=== PATIENT | female | born 1965 | race Caucasian/White ===

== ENCOUNTER 2019-12-15 19:34 | Emergency (ER) | payer BC ==
[~2019-12-15] VITALS: Ht 172.7 cm; Wt 108.9 kg
[~2019-12-15 19:34] MED LIST: AMIT25; CRUTCH3 USE; ESOM20 PO; FAMO20; GLUCHON; HYDACE5 PO; HYOS.125; HYOS0.375T PO; IBUP800 PO; KETO10 PO; LYRICA; META800; NAPR500 PO; OMEP20ER PO; OXYACE5T PO; PROACE100; Percocet 5-3251 EACH PO; ROSU10TA; SIMV40 PO; SUCR1 PO; [UNRECOGNIZED DRUG - OTHER]; [UNRECOGNIZED DRUG - REMARK]
== END 2019-12-15 21:15 | disposition left against medical advice (07) ==
LOC: ER 19:34
DX: Z53.21 Procedure and treatment not carried out due to patient leaving prior to being seen by health care provider (principal)

== ENCOUNTER → 2020-10-29 | Outpatient (CLI) | payer BC ==
[~2020-10-29] MED LIST changes: +ESTRADIOL-NORE1 EAC1 PO; +LEVOCETIRIZINE D5 MG PO; +LINZESS145 MCG PO; +PREG100 PO; +ZANAFLEX4 MG PO
== END | disposition home or self-care (01) ==
LOC: LAB SHORT 14:56
DX: R10.32 Left lower quadrant pain (principal)
CPT/HCPCS: 82565

== ENCOUNTER → 2022-08-12 | Outpatient (CLI) | payer BC ==
[2022-08-12 18:17] LABS: U Amphetamine Screen Not Detected; U Barbituate Screen Not Detected; U Benzodiazapine Screen Not Detected; U Buprenorphine Screen Not Detected; U Cannabinoids Screen Not Detected; U Cocaine Screen Not Detected; U Methadone Screen Not Detected; U Methamphetamine Screen Not Detected; U Opiates Screen DETECTED; U Oxycodone Screen Not Detected; U Phencyclidine Screen Not Detected; U Propoxyphene Screen Not Detected
== END | disposition home or self-care (01) ==
LOC: LAB SHORT 10:09
PROVIDERS: Internal Medicine Hematology & Oncology
DX: Z51.81 Encounter for therapeutic drug level monitoring (principal); Z79.899 Other long term (current) drug therapy

== ENCOUNTER → 2024-01-10 | Outpatient (CLI) | payer BC | END | disposition home or self-care (01) | LOC: LAB 18:02 → LAB SHORT 18:02 | DX: N90.89 Other specified noninflammatory disorders of vulva and perineum (principal) | CPT/HCPCS: 87252 ==

== ENCOUNTER 2024-03-14 18:46 | Emergency (ER) | payer BC ==
[~2024-03-14] VITALS: Ht 175.3 cm; Wt 101.2 kg
[2024-03-14 18:55] VITALS: BP 125/80
[2024-03-14] MEDS ORDERED: Ketorolac Tromethamine 15mg Vial IM ONE (20:45)
[2024-03-14] MEDS ORDERED: DiphenhydrAMINE HCl 50 MG Cap PO ONE (20:45)
== END 2024-03-14 20:51 | disposition home or self-care (01) ==
LOC: ER 18:46
DX: S06.0X0A Concussion without loss of consciousness, initial encounter (principal); S00.411A Abrasion of right ear, initial encounter; W20.8XXA Other cause of strike by thrown, projected or falling object, initial encounter; Z79.899 Other long term (current) drug therapy; Z88.8 Allergy status to other drugs, medicaments and biological substances
CPT/HCPCS: 70450; 96372; 99283-25; A9270; J1885

== ENCOUNTER → 2024-07-04 | Outpatient (CLI) | payer BC ==
[2024-07-04 15:51] LABS: U Amphetamine Screen Not Detected; U Barbituate Screen Not Detected; U Benzodiazapine Screen Not Detected; U Buprenorphine Screen Not Detected; U Cannabinoids Screen Not Detected; U Cocaine Screen Not Detected; U Methadone Screen Not Detected; U Methamphetamine Screen Not Detected; U Opiates Screen DETECTED; U Oxycodone Screen Not Detected; U Phencyclidine Screen Not Detected
== END | disposition home or self-care (01) ==
LOC: LAB SHORT 11:40 → LAB 11:40
PROVIDERS: Internal Medicine Hematology & Oncology
DX: Z51.81 Encounter for therapeutic drug level monitoring (principal); Z79.899 Other long term (current) drug therapy

== ENCOUNTER 2024-12-05 21:32 | Emergency (ER) | payer BC ==
[~2024-12-05] VITALS: Ht 175.3 cm; Wt 108.0 kg
[2024-12-05 21:46] VITALS: BP 116/81
[2024-12-05] MEDS ORDERED: Ketorolac Tromethamine 15mg Vial IM ONE (21:50)
== END 2024-12-05 21:58 | disposition home or self-care (01) ==
LOC: ER 21:32
DX: M54.31 Sciatica, right side (principal); Z88.8 Allergy status to other drugs, medicaments and biological substances; Z79.899 Other long term (current) drug therapy
CPT/HCPCS: 96372; 99283-25; J1885

== ENCOUNTER 2025-04-02 16:24 | Emergency (ER) | payer BC ==
[~2025-04-02] VITALS: Ht 175.3 cm; Wt 105.2 kg
[2025-04-02] MEDS ORDERED: HYDROmorphone HCl/Pf 1MG SYR IV PRN (16:50)
[2025-04-02] MEDS ORDERED: OXAYDO5 M1 PO (19:32)
[2025-04-02] MEDS ORDERED: ONDA4ODT MM (19:32)
[2025-04-02] MEDS ORDERED: POLY500 PO (19:32)
[2025-04-02] MEDS ORDERED: SENNA LAXATIVE8.6 MG PO (19:32)
[2025-04-02] MEDS ORDERED: CODACE30 PO (19:32)
[2025-04-02 20:00] VITALS: BP 110/91
== END 2025-04-02 20:29 | disposition home or self-care (01) ==
LOC: ER 16:24
DX: S82.142A Displaced bicondylar fracture of left tibia, initial encounter for closed fracture (principal); I10 Essential (primary) hypertension; J44.9 Chronic obstructive pulmonary disease, unspecified; W18.30XA Fall on same level, unspecified, initial encounter; Z79.899 Other long term (current) drug therapy; Z88.8 Allergy status to other drugs, medicaments and biological substances; Z87.891 Personal history of nicotine dependence
CPT/HCPCS: 73502; 73562-LT; 73590; 73700; 76377; 96374; 96376; 99284-25; A6590; J1171

== ENCOUNTER 2025-04-10 12:14 | Inpatient (IN) | payer BC ==
[~2025-04-10] VITALS: Ht 175.3 cm; Wt 73.8 kg
[~2025-04-10 12:14] MED LIST changes: +CODACE30 PO; +ONDA4ODT MM; +OXAYDO5 M1 PO; +POLY500 PO; +SENNA LAXATIVE8.6 MG PO
[2025-04-10] MEDS ORDERED: NS 1,000 ML IV SCH ×3 (12:55→21:00)
[2025-04-10] MEDS ORDERED: Ketorolac Tromethamine 30mg Vial IV ONE (13:15)
[2025-04-10 14:21] LABS: BASOPHILS ABSOLUTE AUTO 0.07 K/mm3 (0.00-0.23); BASOPHILS PERCENT AUTO 1 % (0-2); EOSINOPHILS ABSOLUTE AUTO 0.13 K/mm3 (0.00-0.68); EOSINOPHILS PERCENT AUTO 1 % (0-6); Hematocrit 42.6 % (33.0-51.0); Hemoglobin 14.1 g/dL (11.5-16.0); IMMATURE GRAN ABSOLUTE AUTO 0.21 K/mm3 (0.00-0.10); IMMATURE GRAN PERCENT AUTO 2 % (0-1); LYMPHOCYTES ABSOLUTE AUTO 1.18 K/mm3 (0.84-5.20); LYMPHOCYTES PERCENT AUTO 8 % (21-46); MONOCYTES ABSOLUTE AUTO 0.67 K/mm3 (0.16-1.47); MONOCYTES PERCENT AUTO 5 % (4-13); Mean Corpuscular HGB Conc 33.1 g/dL (31.5-36.5); Mean Corpuscular Volume 89 fL (80-100); NEUTROPHILS ABSOLUTE AUTO 11.98 K/mm3 (1.96-9.15); NEUTROPHILS PERCENT AUTO 84 % (41-73); NRBC ABSOLUTE 0.00 K/mm3 (0.00-0.02); NRBC Auto 0.0 /100 WBC (0.0-0.2); Platelet Count 253 K/mm3 (150-400); RDW Coefficient Variation 13.5 % (11.7-14.2); RDW Standard Deviation 44.1 fL (35.1-46.3)
[2025-04-10 14:30] LABS: Alanine Aminotransfer (ALT/SGP 22.0 U/L (12-78); Albumin, Blood 3.7 g/dL (3.4-5.0); Albumin/Globulin Ratio 0.9 (0.8-1.8); Anion Gap 9.0 mmol/L (3-11); Aspartate Aminotrans (AST/SGOT 15.0 U/L (12-37); Bilirubin, Total 1.1 mg/dL (0.1-1.0); Blood Urea Nitrogen 9.0 mg/dL (8-24); CO2, Blood 27.0 mmol/L (21-32); Calcium, Blood 8.8 mg/dL (8.5-10.1); Chloride, Blood 105.0 mmol/L (98-108); Creatinine, Blood 0.6 mg/dL (0.40-1.00); Globulin, Blood 3.9 g/dL (2.2-4.0); Glucose, Blood 132.0 mg/dL (70-99); Potassium, Blood 3.4 mmol/L (3.5-5.5); Sodium, Blood 138.0 mmol/L (136-145); Total Protein, Blood 7.6 g/dL (6.4-8.2)
[2025-04-10] MEDS ORDERED: Piperacillin/Tazobactam Sod 4.5 GM in NS 100 ML IV ONE (14:30)
[2025-04-10] MEDS ORDERED: Vancomycin HCL 2,000 MG in NS 520 ML IV ONE (14:30)
[2025-04-10] MEDS ORDERED: ESTRADIOL42.5 GM VAG (14:51)
[2025-04-10] MEDS ORDERED: LINZESS290 MCG PO (14:51)
[2025-04-10] MEDS ORDERED: SYMAX PO (14:51)
[2025-04-10] MEDS ORDERED: LOSARTAN POTASS25 M2 PO (14:51)
[2025-04-10] MEDS ORDERED: METOPROLOL SUCC25 MG PO (14:51)
[2025-04-10] MEDS ORDERED: FARXIGA10 MG PO (14:51)
[2025-04-10] MEDS ORDERED: DULO30 PO (14:52)
[2025-04-10] MEDS ORDERED: ATORVASTATIN CA20 MG PO (14:53)
[2025-04-10 15:16] LABS: Source, Urine Straight Cath
[2025-04-10 15:19] LABS: CORONAVIRUS COVID-19 AG Negative (NEGATIVE)
[2025-04-10 15:36] LABS: Bilirubin, Urine Neg (Neg); Glucose Qualitative, Urine 4+ (Neg); Ketones, Urine 1+ (Neg); Leukocyte Esterase, Urine 1+ (Neg); Protein, Urine Neg (Neg); Specific Gravity, Urine 1.015 (1.003-1.022); Urobilinogen, Urine NORM (Normal)
[2025-04-10 15:58] LABS: Color, Urine Pale Yellow (P-Yellow)
[2025-04-10 15:59] LABS: Yeast/Fungi Urine Few /hpf
[2025-04-10 16:26] LABS: U Amphetamine Screen Not Detected; U Barbituate Screen Not Detected; U Benzodiazapine Screen Not Detected; U Buprenorphine Screen Not Detected; U Cannabinoids Screen Not Detected; U Cocaine Screen Not Detected; U Methadone Screen Not Detected; U Methamphetamine Screen Not Detected; U Opiates Screen DETECTED; U Oxycodone Screen Not Detected; U Phencyclidine Screen Not Detected
[2025-04-10] MEDS ORDERED: Morphine Sulfate 4 MG/1 ML Injection IV ONE (16:55)
[2025-04-10] MEDS ORDERED: Ondansetron HCl 2 MG / ML 2ML Vial IV ONE (16:55)
[2025-04-10] MEDS ORDERED: FentaNYL Citrate 50 MCG/ML 2 ML Injection IV PRN (19:05)
[2025-04-10] MEDS ORDERED: HYDROcodone 5-APAP 325 TAB PO PRN (19:05)
[2025-04-10] MEDS ORDERED: OTEZLA30 MG PO (20:01)
[2025-04-10] MEDS ORDERED: Dilaudid 2 mg Ta2 MG PO (20:05)
--- NOTE | 2025-04-10 20:19 | NUR ---
TOOK REPORT FROM ED WILLIAM QUIÑONES @ 2014.
[2025-04-10] MEDS ORDERED: NS 250 ML IV PRN (20:25)
[2025-04-10 20:46] VITALS: BP 105/72
[2025-04-10] MEDS ORDERED: Ondansetron HCl 2 MG / ML 2ML Vial IV PRN (20:55)
[2025-04-10] MEDS ORDERED: Piperacillin/Tazobactam Sod 3.375 GM in NS 100 ML IV SCH (21:00)
[2025-04-10] MEDS ORDERED: PREG300 PO (21:13)
[2025-04-10] MEDS ORDERED: LYRICA200 M1 PO (21:13)
[2025-04-10] MEDS ORDERED: MEGA 3-6-9 SO1233 MG (21:14)
[2025-04-10] MEDS ORDERED: OMEP20ER PO (21:15)
[2025-04-10] MEDS ORDERED: ALBU90OI INH (21:48)
[2025-04-10] MEDS ORDERED: Albuterol HFA200 ACT/6.7 GM INH INH PRN (22:15)
[2025-04-10] MEDS ORDERED: TIZA4 PO (23:08)
[2025-04-11 03:02] VITALS: BP 109/72
--- NOTE | 2025-04-11 04:25 | NUR ---
SHIFT SUMMARY NOC PT A/O X 4. PLEASANT AND COOPERATIVE WITH CARE. VSS. ADMIT WITH SEPSIS SECONDARY TO LLE CELLULITIS FROM TIBIAL FX. PT MEDS HAVE BEEN RECONCILED. PT HAS SIGNIFICANT BRUISING ON BACK OF L KNEE FROM RECENT FALL AT HOME WHEN PET DOG KNOCKED THEM OVER. ORTHO CONSULT WITH DR GARCIA CALL IN. PT HAS PUREWICK IN PLACE DUE TO PAIN AND IMMOBILITY IN LLE. NS, IV ABX, PAIN RX BEING MANAGED PER EMAR. PT TAKED OTEZLA AT HOME, BUT HOSPITAL DOES NOT CARRY IMMUNOSUPPRESSIVE MEDICATIONS, SO PT WILL HAVE SPOUSE BRING IN BOTTLE FOR PHARMACY TO VERIFY AND PLACE SCAN BAR ON FOR ADMINISTRATION.. PT CURRENTLY RESTING WITH BED IN LOWEST POSITION, AND CALL LIGHT WITHIN REACH.
[2025-04-11 05:51] LABS: BASOPHILS ABSOLUTE AUTO 0.05 K/mm3 (0.00-0.23); BASOPHILS PERCENT AUTO 1 % (0-2); EOSINOPHILS ABSOLUTE AUTO 0.14 K/mm3 (0.00-0.68); EOSINOPHILS PERCENT AUTO 1 % (0-6); Hematocrit 36.9 % (33.0-51.0); Hemoglobin 12.1 g/dL (11.5-16.0); IMMATURE GRAN ABSOLUTE AUTO 0.16 K/mm3 (0.00-0.10); IMMATURE GRAN PERCENT AUTO 2 % (0-1); LYMPHOCYTES ABSOLUTE AUTO 1.56 K/mm3 (0.84-5.20); LYMPHOCYTES PERCENT AUTO 15 % (21-46); MONOCYTES ABSOLUTE AUTO 0.71 K/mm3 (0.16-1.47); MONOCYTES PERCENT AUTO 7 % (4-13); Mean Corpuscular HGB Conc 32.8 g/dL (31.5-36.5); Mean Corpuscular Volume 90 fL (80-100); NEUTROPHILS ABSOLUTE AUTO 7.90 K/mm3 (1.96-9.15); NEUTROPHILS PERCENT AUTO 75 % (41-73); NRBC ABSOLUTE 0.00 K/mm3 (0.00-0.02); NRBC Auto 0.0 /100 WBC (0.0-0.2); Platelet Count 203 K/mm3 (150-400); RDW Coefficient Variation 13.7 % (11.7-14.2); RDW Standard Deviation 45.2 fL (35.1-46.3)
[2025-04-11 06:31] LABS: Alanine Aminotransfer (ALT/SGP 22.0 U/L (12-78); Albumin, Blood 2.7 g/dL (3.4-5.0); Albumin/Globulin Ratio 0.8 (0.8-1.8); Anion Gap 7.0 mmol/L (3-11); Aspartate Aminotrans (AST/SGOT 19.0 U/L (12-37); Bilirubin, Total 1.1 mg/dL (0.1-1.0); Blood Urea Nitrogen 11.0 mg/dL (8-24); CO2, Blood 24.0 mmol/L (21-32); Calcium, Blood 8.5 mg/dL (8.5-10.1); Chloride, Blood 114.0 mmol/L (98-108); Creatinine, Blood 0.62 mg/dL (0.40-1.00); Globulin, Blood 3.4 g/dL (2.2-4.0); Glucose, Blood 124.0 mg/dL (70-99); Potassium, Blood 3.5 mmol/L (3.5-5.5); Sodium, Blood 141.0 mmol/L (136-145); Total Protein, Blood 6.1 g/dL (6.4-8.2)
[2025-04-11 07:40] VITALS: BP 99/72
[2025-04-11] MEDS ORDERED: Enoxaparin 40 MG/0.4 ML SYR SC SCH (09:00)
[2025-04-11 12:03] LABS: WBC Count, Synovial Fluid 702 /mm3 (0-180)
[2025-04-11 12:06] LABS: Appearance, Synovial Fluid Bloody (Clear); Color, Synovial Fluid Red (None-P Yel)
[2025-04-11 12:07] LABS: BODY FLUID RBC 5.685 M/mm3 (0-0); RBC Count, Synovial Fluid 5685000 /mm3 (0-0)
[2025-04-11 13:08] LABS: Eos, Synovial Fluid 6 % (0-2); Lymphs, Synovial Fluid 53 % (0-15); Monocytes/Macrophages, Synovia 30 % (0-65); Neutrophils, Synovial Fluid 11 % (0-24)
[2025-04-11 15:31] VITALS: BP 127/80
[2025-04-11 15:32] VITALS: BP 127/80
[2025-04-11] MEDS ORDERED: Polyethylene Glycol 3350 17 gm PO SCH (17:05)
[2025-04-11] MEDS ORDERED: Magnesium Hydroxide Conc 10 ML UDC PO PRN (17:05)
--- NOTE | 2025-04-11 19:05 | NUR ---
SUMMARY- PT A/O X4, BEDREST WITH NWB TO LLE RELATED TO FX. L KNEE WITH MILD SWELLING AND WARMPTH, NO REDNESS. DR GARCIA IN TO CONSULT THIS AM, HAD BEEN FOLLOWING PT O.P. THROUGH [facility]. US NEEDLE ASPIRATE ORDERED AND PERFORED, FLUID SENT TO LAB FOR CX THIS AM. PAIN CONTROLLED WITH NOCO Q4. PT TOLERATING PO FOOD AND FLUIDS. PUREWICK FOR HX INCONTINANCE RELATED TO URETHRAL INJURY DUDRING GLENN/BSO IN THE PAST. PT IS NWB, LAINA UP IN FWW WITH SEAT AND HAD A SHOWER, MAINTAINING NWB STATUS. PT USES CALL LIGHT AND KNOWS HER OWN LIMITS. STATES SHE HASN'T A BM FOR A FEW DAYS AND REQ FOR BOWEL CARE. STAERTD ON SENEKOT AND MIRILAX. MOM ORDERED FOR PT TO TAKE AT HER DISCRETION OF TIME. IN MOST OF THE DAY, SUPPORTIVE IN ALL CARE. REPORTED ALL TO NOC WILLIAM HARP
[2025-04-11 19:07] VITALS: BP 123/67
[2025-04-11] MEDS ORDERED: Fluticasone 0.05% Nasal Spray SCH (21:00)
[2025-04-12 05:20] VITALS: BP 129/82
--- NOTE | 2025-04-12 05:47 | NUR ---
SHIFT SUMMARY PATIENT ALERT AND ORIENTED X 4. PATIENT REMAINED PLEASANT AND RECEPTIVE DURING CARE. NO ACUTE CHANGE DURING THIS SHIFT. VITAL SIGNS STABLE. PATIENT SELF REPOSITIONED THROUGHOUT THE SHIFT. PUREWICK IN PLACE TO SUCTION. PATIENT SLEPT MOST OF THE NIGHT NO SIGNS OF DISTRESS, RESPIRATION EVEN AND UNLABORED. ADMINISTERED MEDICATIONS PER EMAR. NS INFUSING -AT 100 MLS/HR. BED LOCKED AND IN LOWEST POSITION. CALL LIGHT WITHIN REACH.
[2025-04-12 06:17] LABS: BASOPHILS ABSOLUTE AUTO 0.04 K/mm3 (0.00-0.23); BASOPHILS PERCENT AUTO 1 % (0-2); EOSINOPHILS ABSOLUTE AUTO 0.11 K/mm3 (0.00-0.68); EOSINOPHILS PERCENT AUTO 1 % (0-6); Hematocrit 37.0 % (33.0-51.0); Hemoglobin 12.2 g/dL (11.5-16.0); IMMATURE GRAN ABSOLUTE AUTO 0.10 K/mm3 (0.00-0.10); IMMATURE GRAN PERCENT AUTO 1 % (0-1); LYMPHOCYTES ABSOLUTE AUTO 1.75 K/mm3 (0.84-5.20); LYMPHOCYTES PERCENT AUTO 22 % (21-46); MONOCYTES ABSOLUTE AUTO 0.58 K/mm3 (0.16-1.47); MONOCYTES PERCENT AUTO 7 % (4-13); Mean Corpuscular HGB Conc 33.0 g/dL (31.5-36.5); Mean Corpuscular Volume 87 fL (80-100); NEUTROPHILS ABSOLUTE AUTO 5.27 K/mm3 (1.96-9.15); NEUTROPHILS PERCENT AUTO 67 % (41-73); NRBC ABSOLUTE 0.00 K/mm3 (0.00-0.02); NRBC Auto 0.0 /100 WBC (0.0-0.2); Platelet Count 208 K/mm3 (150-400); RDW Coefficient Variation 13.4 % (11.7-14.2); RDW Standard Deviation 43.2 fL (35.1-46.3)
[2025-04-12 06:45] LABS: Anion Gap 8.0 mmol/L (3-11); Blood Urea Nitrogen 7.0 mg/dL (8-24); CO2, Blood 24.0 mmol/L (21-32); Calcium, Blood 8.1 mg/dL (8.5-10.1); Chloride, Blood 111.0 mmol/L (98-108); Creatinine, Blood 0.59 mg/dL (0.40-1.00); Glucose, Blood 96.0 mg/dL (70-99); Potassium, Blood 3.2 mmol/L (3.5-5.5); Sodium, Blood 140.0 mmol/L (136-145)
[2025-04-12 08:01] VITALS: BP 125/89
--- NOTE | 2025-04-12 08:38 | NUR ---
AM NOTE: PATIENT REPORTS TAKES LYRICA 200 MG PO IN THE MORNING AND WOULD LIKE HER DOSE THIS MORNING. NOTIFIED DR. CANADA, RECEIVED ORDER TO GIVE LYRICA 200 MG PO OT DOSE NOW.
[2025-04-12 15:13] VITALS: BP 136/93
[2025-04-12] MEDS ORDERED: AMOCLA875 PO (16:38)
--- NOTE | 2025-04-12 16:59 | NUR ---
SHIFT/DISCHARGE SUMMARY: PATIENT A/OX4, PLEASANT AND COOPERATIVE c CARE. PATIENT DENIES CP/PRESSURE, SOB, N/V AND DIZZINESS. PATIENT MEDICATED FOR L LEG PAIN PER EMAR c GOOD EFFECT. PATIENT NWB TO L LEG, USES IMMOBILIZER/BRACE c AMBULATION AND TOLERATING WELL. PATIENT REFUSE PT THIS AM, DR. CANADA IS AWARE. PATIENT HAS GOOD APPETITE, CONTINENT OF BAB, AMBULATES TO BATHROOM c SBA/FWW. PATIENT RECEIVED SCHEDULED MEDS PER EMAR. VITAL SIGNS REVIEWED. PIV DC'D. PATIENT DISCHARGE HOME c PO ABX. DISCHARGE INSTRUCTIONS PACKET GIVEN TO PATIENT. PATIENT EDUCATED ON ADMITTING DX'S OF SEPSIS, S/S, TX, NEW RX AND TO F/U c PCP, UROLOGY AND ORTHOPEDIC. PATIENT VERBALIZED UNDERSTANDING AND NO FURTHER QUESTIONS. RX WAS FAXED TO PATIENT PREFERRED PHARMACY-[facility]. ALL PERSONAL BELONGINGS WERE SENT c PATIENT. PATIENT LEFT THE ROOM AT 1707, TRANSPORTED VIA BY VANDANA BANEGAS TO PATIENT ENTRANCE.
== END 2025-04-12 17:10 | disposition home or self-care (01) | DRG 871 ==
LOC: ER 12:14 → MEDS 17:51 → ENPENDDIS 04-12 16:59 → MEDS 04-12 17:10
PROVIDERS: Emergency Medicine; Internal Medicine; Nurse Practitioner Acute Care; Physician Assistant; ADMIT Student in an Organized Health Care Education/Training Program
PROC: 3E03329 Introduction of Other Anti-infective into Peripheral Vein, Percutaneous Approach (ICD-10-PCS; principal; 2025-04-10)
PROC: 0S9D3ZX Drainage of Left Knee Joint, Percutaneous Approach, Diagnostic (ICD-10-PCS; 2025-04-11)
DX: A41.9 Sepsis, unspecified organism (principal); G92.8 Other toxic encephalopathy; S82.142A Displaced bicondylar fracture of left tibia, initial encounter for closed fracture; B37.49 Other urogenital candidiasis; R65.20 Severe sepsis without septic shock; L40.50 Arthropathic psoriasis, unspecified; I10 Essential (primary) hypertension; E78.00 Pure hypercholesterolemia, unspecified; J44.89 Other specified chronic obstructive pulmonary disease; M25.462 Effusion, left knee; E86.0 Dehydration; M79.7 Fibromyalgia; W19.XXXA Unspecified fall, initial encounter; Z88.6 Allergy status to analgesic agent; Z79.69 Long term (current) use of other immunomodulators and immunosuppressants; Z87.891 Personal history of nicotine dependence
CPT/HCPCS: 20611; 36415; 70450; 71045; 80048; 80053; 81001; 82947; 83605; 84145; 85025; 85651; 86140; 87040; 87070; 87075; 87086; 87205; 87428-QW; 89051; 89060; 96361; 96365; 96366; 96367; 96375; 99285-25; A9270; J1650; J1885; J2270; J2405; J2543; J3373; J7030; J7040; J7050; P9612